=== PATIENT | male | born 1960 | race Caucasian/White ===

== ENCOUNTER 2019-03-21 15:26 | Outpatient (CLI) | payer BC ==
[2019-03-21 19:01] LABS: BASOPHILS % (AUTO) 0.7 %; EOSINOPHILS # (AUTO) 0.2 10^3/uL (0.0-0.7); EOSINOPHILS % (AUTO) 3.7 %; HGB - HEMOGLOBIN 16.1 g/dL (14.0-18.0); LYMPHOCYTES # (AUTO) 0.7 10^3/uL (1.5-3.5); LYMPHOCYTES % (AUTO) 14.3 %; MEAN CORPUSCULAR HEMOGLOBIN 31.1 pg (27.0-31.0); MEAN CORPUSCULAR VOLUME 91.4 fL (80.0-94.0); MEAN PLATELET VOLUME 8.2 fL (7.4-11.4); MONOCYTES # (AUTO) 0.5 10^3/uL (0.0-1.0); MONOCYTES % (AUTO) 9.1 %; NEUTROPHILS # (AUTO) 3.7 10^3/uL (1.5-6.6); NEUTROPHILS % (AUTO) 72.2 %; PLT - PLATELET COUNT 158 10^3/uL (130-450); RED BLOOD COUNT 5.19 10^6/uL (4.70-6.10); RED CELL DISTRIBUTION WIDTH 13.1 % (12.0-15.0); WHITE BLOOD COUNT 5.2 x10^3/uL (4.8-10.8)
[2019-03-21 19:17] LABS: ALBUMIN 4.1 g/dL (3.2-5.5); ALBUMIN/GLOBULIN RATIO 1.4 (1.0-2.2); ALKALINE PHOSPHATASE 59 IU/L (42-121); ALT ALANINE AMINOTRANSFERASE 35 IU/L (10-60); AST ASPARTATE AMINOTRANSFERASE 29 IU/L (10-42); BILIRUBIN,TOTAL 0.9 mg/dL (0.2-1.0); BUN - BLOOD UREA NITROGEN 13 mg/dL (6-20); CALCIUM 9.1 mg/dL (8.5-10.3); CARBON DIOXIDE - CO2 26 mmol/L (21-32); CHLORIDE 102 mmol/L (101-111); CREATININE 1.1 mg/dL (0.6-1.2); GFR - MDRD 68 (>89); GLUCOSE 115 mg/dL (70-100); LIPASE 31 U/L (22-51); SODIUM 138 mmol/L (135-145); TOTAL PROTEIN 7.1 g/dL (6.7-8.2)
[2019-03-21 20:09] LABS: CRP - C-REACTIVE PROTEIN < 1.0 mg/dL (0-1.0)
== END 2019-03-21 15:27 | disposition home or self-care (01) ==
LOC: LAB.WCP 15:26
PROVIDERS: ATTEND Family Medicine
DX: R19.5 Other fecal abnormalities (principal); R51 Headache; Z12.5 Encounter for screening for malignant neoplasm of prostate
CPT/HCPCS: 36415; 80053; 83690; 84153; 85025; 85651; 86140

== ENCOUNTER 2019-03-23 03:45 | Emergency (ER) | payer BC ==
[2019-03-23] MEDS ORDERED: SODIUM CHLORIDE 0.9% 1,000 ML IV ONE (04:12)
[2019-03-23] MEDS ORDERED: ONDANSETRON 4 MG/2 ML VIAL IVP STA (04:12)
[2019-03-23] MEDS ORDERED: MAG HYDROX/AL HYDROX/SIMETH 30 ML UDC PO STA (04:12)
[2019-03-23] MEDS ORDERED: HYDROmorphone 2 MG/ML VIAL IVP STA (04:12)
[2019-03-23] MEDS ORDERED: KETOROLAC 15 MG/ML VIAL IVP STA (04:12)
--- NOTE | 2019-03-23 04:12 | ED Physician Documentation ---
PD HPI HEADACHE - Stated complaint Stated Complaint: NOYOLA - Chief complaint Chief Complaint: Neuro - History obtained from History obtained from: Patient - History of Present Illness Timing - onset: How many days ago (4) Timing - onset during: Light activity Timing - duration: Days (4) Timing - details: Gradual onset, Still present, Waxing and waning Worst headache ever?: No: Worst headache ever? Location: Front, Right Quality: Throbbing, Aching Associated symptoms: Nausea. No: Fever, Stiff neck, Vomiting, Weakness, Numbness, Vision changes Improved by: No: Rest, Meds (Ibuprofen) Worsened by: No: Light, Noise Contributing factors: Recent illness (chills and malaise 4 days ago, improving) Similar symptoms before: Has not had sx before Recently seen: Clinic (seen yesterday by PCP and is being referred for GI/ednoscopies to [facility] for the light stools. Also was to get CT head regarding the headache; patient was to hear from office today about referral. He had worse headache, so came to ER.) Review of Systems Constitutional: reports: Chills, Myalgias. denies: Fever Eyes: denies: Photophobia Nose: reports: Congestion. denies: Rhinorrhea / runny nose Throat: denies: Sore throat Respiratory: denies: Cough GI: reports: Nausea, Diarrhea (loose stool with white/dayanara-like stools over this past weekend (4-5 days ago). No ongoing diarrhea the past few days. Has nausea with vomiting in the mornings for months.). denies: Vomiting Skin: denies: Rash, Lesions Neurologic: reports: Headache. denies: Focal weakness, Numbness, Near syncope, Confused, Altered mental status PD PAST MEDICAL HISTORY - Past Medical History Cardiovascular: Hypertension Respiratory: None Neuro: None GI: GERD, Other - Past Surgical History Past Surgical History: Yes General: Other - Present Medications Home Medications: Ambulatory Orders Medication Instructions Recorded Confirmed Famotidine 20 mg PO DAILY #30 tablet 03/23/19 Hydrocodone/Acetaminophen [Drain 1 each PO Q6H PRN #15 tablet 03/23/19 5-325 Tablet] Ondansetron Odt [Zofran] 4 mg TL Q6H PRN #10 tablet 03/23/19 dexAMETHasone [Decadron] 4 mg PO DAILY #5 tablet 03/23/19 - Allergies Allergies/Adverse Reactions: Allergies Allergy/AdvReac Type Severity Reaction Status Date / Time amoxicillin Allergy Rash Verified 01/03/16 06:03 - Social History Does the pt smoke?: No Smoking Status: Never smoker Does the pt drink ETOH?: No - Immunizations Immunizations are current?: Yes PD ED PE NORMAL - General General: Alert and oriented X 3, No acute distress, Well developed/nourished - HEENT HEENT: Atraumatic, PERRL, EOMI, Ears normal, Pharynx benign - Neck Neck: Supple, no meningeal sign, No adenopathy - Cardiac Cardiac: RRR, No murmur - Respiratory Respiratory: Clear bilaterally - Abdomen Abdomen: Soft, Non tender - Back Back: No CVA TTP - Derm Derm: Normal color, Warm and dry - Extremities Extremities: No tenderness to palpate, Normal ROM s pain - Neuro Neuro: Alert and oriented X 3, 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, No motor deficit, No sensory deficit, Normal speech, Other Eye Opening: Spontaneous Motor: Obeys Commands Verbal: Oriented GCS Score: 15 Results - Vitals Vitals: Vital Signs - 24 hr 03/23/19 03/23/19 03/23/19 03:50 04:57 06:00 Temperature 36.5 C 36.5 C Heart Rate 71 78 61 Respiratory 17 Rate Blood Pressure 165/91 H 175/96 H 152/88 H O2 Saturation 99 97 97 Oxygen O2 Source Room air - Labs Labs: Laboratory Tests 03/23/19 03/23/19 05:00 05:00 WBC 4.8 RBC 5.00 Hgb 15.9 Hct 44.5 MCV 88.9 MCH 31.7 H MCHC 35.6 RDW 12.7 Plt Count 141 MPV 7.2 L Neut # (Auto) 3.5 Lymph # (Auto) 0.7 [place] # (Auto) 0.5 Eos # (Auto) 0.1 Baso # (Auto) 0.0 Absolute Nucleated RBC 0.00 Nucleated RBC % 0.1 Sodium 139 Potassium 3.9 Chloride 103 Carbon Dioxide 26 Anion Gap 10.0 BUN 17 Creatinine 0.9 Estimated GFR (MDRD) 86 L Glucose 111 H Calcium 9.0 Total Bilirubin 1.1 H AST 29 ALT 36 Alkaline Phosphatase 66 Total Protein 7.1 Albumin 4.2 Globulin 2.9 Albumin/Globulin Ratio 1.4 Lipase 43 - Rads (name of study) head CT Radiology: Prelim report reviewed (no acute process), See rad report PD MEDICAL DECISION MAKING - ED course Complexity details: reviewed results, re-evaluated patient (feeling much better with meds and fluids. ), considered differential, d/w patient Departure - Departure Disposition: 01 Home, Self Care Clinical Impression: Acute headache Qualifiers: Headache type: unspecified Intractability: not intractable Qualified Code(s): R51 - Headache Condition: Stable Record reviewed to determine appropriate education?: Yes Instructions: ED Cephalgia Unspecified Follow-Up: Kaveh Oswald MD [Primary Care Provider] - Prescriptions: dexAMETHasone [Decadron] 4 mg PO DAILY #5 tablet Famotidine 20 mg PO DAILY #30 tablet Hydrocodone/Acetaminophen [Drain 5-325 Tablet] 1 each PO Q6H PRN #15 tablet PRN Reason: Pain Ondansetron Odt [Zofran] 4 mg TL Q6H PRN #10 tablet PRN Reason: Nausea / Vomiting Comments: Your CT scan does not show any acute abnormality. Your blood count is good with a normal white count and you do not have a fever. This still sounds possibly a viral illness with associated headache. Stay well-hydrated. Decadron daily for 5 more days for inflammation. Use ibuprofen or naproxen once or twice daily as needed. Add ondansetron if needed for nausea. Had Tylenol or hydrocodone as needed for headache. Follow-up with your primary care if not improved in the next couple of days. Discharge Date/Time: 03/23/19 07:03
[2019-03-23 05:15] LABS: BASOPHILS % (AUTO) 0.3 %; EOSINOPHILS # (AUTO) 0.1 10^3/uL (0.0-0.7); EOSINOPHILS % (AUTO) 2.6 %; HGB - HEMOGLOBIN 15.9 g/dL (14.0-18.0); LYMPHOCYTES # (AUTO) 0.7 10^3/uL (1.5-3.5); LYMPHOCYTES % (AUTO) 14.3 %; MEAN CORPUSCULAR HEMOGLOBIN 31.7 pg (27.0-31.0); MEAN CORPUSCULAR HGB CONC 35.6 g/dL (32.0-36.0); MEAN CORPUSCULAR VOLUME 88.9 fL (80.0-94.0); MEAN PLATELET VOLUME 7.2 fL (7.4-11.4); MONOCYTES # (AUTO) 0.5 10^3/uL (0.0-1.0); MONOCYTES % (AUTO) 10.6 %; NEUTROPHILS # (AUTO) 3.5 10^3/uL (1.5-6.6); NEUTROPHILS % (AUTO) 72.2 %; PLT - PLATELET COUNT 141 10^3/uL (130-450); RED CELL DISTRIBUTION WIDTH 12.7 % (12.0-15.0); WHITE BLOOD COUNT 4.8 x10^3/uL (4.8-10.8)
--- NOTE | 2019-03-23 05:18 | CT Report ---
Reason: headache 4 days Procedure Date: 03/23/2019 Accession Number: [id number] / [id number] Procedure: CT - HEAD WO CPT Code: FULL RESULT: EXAM: CT HEAD EXAM DATE: 03/23/2019 05:03 AM. CLINICAL HISTORY: Headache 4 days. COMPARISON: None. TECHNIQUE: Multiaxial CT images were obtained from the foramen magnum to the vertex. Reformats: Sagittal and coronal. IV contrast: None. In accordance with CT protocol optimization, one or more of the following dose reduction techniques were utilized for this exam: automated exposure control, adjustment of mA and/or KV based on patient size, or use of iterative reconstructive technique. FINDINGS: Parenchyma: No acute intracranial hemorrhage or large cortical infarct. No intra-axial mass within the confines of a non-contrast exam. No midline shift. Extraaxial Spaces: No abnormal extra-axial collections demonstrated. Ventricles and sulci: Ventricles and sulci are proportional. Sinuses: There is mucosal thickening within the left sphenoid sinus. Ethmoid air cell mucosal thickening as well. No evident mastoid fluid. Orbits: Without significant abnormality. Bones: No evidence of fracture or calvarial defect. Other: Prior right-sided maxillofacial ORIF. IMPRESSION: No CT evidence of an acute intracranial abnormality. If there is clinical suspicion of an acute infarct, consider MRI since it is more sensitive than CT. RADIA
[2019-03-23 05:28] LABS: ALBUMIN 4.2 g/dL (3.2-5.5); ALBUMIN/GLOBULIN RATIO 1.4 (1.0-2.2); BILIRUBIN,TOTAL 1.1 mg/dL (0.2-1.0); CREATININE 0.9 mg/dL (0.6-1.2); TOTAL PROTEIN 7.1 g/dL (6.7-8.2)
[2019-03-23] MEDS ORDERED: DEXAMETHASONE 10 MG/ML VIAL IVP STA (05:35)
[2019-03-23 06:02] VITALS: BP 152/88
== END 2019-03-23 07:03 | disposition home or self-care (01) ==
LOC: ED 03:45
DX: R51 Headache (principal); I10 Essential (primary) hypertension
CPT/HCPCS: 36415; 70450; 80053; 83690; 85025; 96361; 96374; 96375; 99283; 99284; A9270; J1170

== ENCOUNTER 2019-03-29 07:11 | Outpatient (CLI) | payer BC ==
--- NOTE | 2019-03-29 08:51 | Ultrasound Report ---
Reason: LOU COLORED STOOLS Procedure Date: 03/29/2019 Accession Number: [id number] / [id number] Procedure: US - Abdomen Complete CPT Code: FULL RESULT: EXAM: ABDOMEN ULTRASOUND EXAM DATE: 03/29/2019 07:40 AM. CLINICAL HISTORY: LOU COLORED STOOLS. COMPARISON: None. TECHNIQUE: Real-time scanning was performed with static images obtained. FINDINGS: Liver: Diffusely echogenic liver parenchyma without suspicious mass. 16 cm. Main portal vein flow: Hepatopetal. Gallbladder: Normal. No stones, wall thickening, or sonographic Cadena's sign. Biliary System: Common bile duct measures 3.8 mm. No intrahepatic or extrahepatic ductal dilatation. Pancreas: Obscured by overlying bowel gas. Kidneys: Right: 10.8 cm longitudinally. Normal. No contour-deforming mass, stones, or hydronephrosis. Left: 11.4 cm longitudinally. Normal. No contour-deforming mass, stones, or hydronephrosis. Spleen: 10.9 cm. Normal in size and echotexture. Aorta and Inferior Vena Cava: Unremarkable. Other: None. IMPRESSION: 1. Diffusely echogenic liver parenchyma which is a nonspecific finding and most often associated with steatosis. No focal mass or significant hepatosplenomegaly. 2. The pancreas cannot be evaluated because of overlying bowel gas. 3. Otherwise negative examination. RADIA
== END 2019-03-29 07:12 | disposition home or self-care (01) ==
LOC: DI 07:11
PROVIDERS: ATTEND Family Medicine
DX: R19.5 Other fecal abnormalities (principal)
CPT/HCPCS: 76700

== ENCOUNTER 2019-04-07 07:19 | Outpatient (CLI) | payer BC ==
[2019-04-07] MEDS ORDERED: GADOBUTROL 7.5 MMOL/7.5 ML VIAL ONE (08:06)
--- NOTE | 2019-04-07 09:44 | MRI Report ---
Reason: HEADACHE Procedure Date: 04/07/2019 Accession Number: [id number] / [id number] Procedure: MRI - Brain W/WO CPT Code: FULL RESULT: EXAM: MRI BRAIN WITHOUT AND WITH CONTRAST EXAM DATE: 04/07/2019 08:49 AM. CLINICAL HISTORY: Flulike symptoms which brought on headaches which since resolved since prior ED visit. COMPARISON: CT head without contrast 03/23/2019. TECHNIQUE: Multiplanar, multisequence T1-weighted and fluid-sensitive MR sequences of the brain were performed. Sequences optimized for routine evaluation. Other: None. IV Contrast: Without and with contrast, 7.5 cc IV Gadavist. FINDINGS: Diffusion weighted sequence shows no evidence for acute infarct. There is no mass, mass effect, midline shift or abnormal extraaxial fluid collection. Size and configuration of the ventricles are normal. Signal in the cortex and white matter appears normal. Brainstem and cerebellum appear normal. Major intracranial flow voids appear normal. Limited evaluation of the arteries and dural venous sinus structures on postcontrast imaging appears normal. Small arachnoid granulations are seen in the lateral left transverse sinus. There is no abnormal parenchymal, pachymeningeal, or leptomeningeal enhancement. Globes, orbits, optic nerve sheath complex, optic chiasm, pituitary, cavernous sinus and Meckel's cave appear normal. Scattered mucosal thickening in the anterior ethmoid air cells, and maxillary sinus antra bilaterally. Mucosal thickening and likely obstruction of the frontal ethmoid recess. Paranasal sinuses and mastoid air cells appear well aerated. Postoperative changes of right orbital zygomatic and maxillofacial reconstructions. Marrow signal and extracranial soft tissue appear normal. Craniocervical junction and visualized upper cervical cord appear unremarkable. IMPRESSION: 1. Unremarkable MRI of the brain without and with contrast. 2. Mucosal thickening in the anterior ethmoid air cells, maxillary sinus and frontoethmoidal recess could be correlated with recent sinusitis. RADIA
[2019-04-08] MEDS ORDERED: GADOBUTROL 7.5 MMOL/7.5 ML VIAL IVP ONE (09:59)
== END 2019-04-07 07:20 | disposition home or self-care (01) ==
LOC: DI 07:19
PROVIDERS: ATTEND Family Medicine
DX: R51 Headache (principal)
CPT/HCPCS: 70553; A9585

== ENCOUNTER 2019-04-26 10:09 | Day surgery (SDC) | payer BC ==
[2019-04-26] MEDS ORDERED: MIDAZOLAM 2 MG/2 ML VIAL IVP ONE (10:30)
[2019-04-26] MEDS ORDERED: fentaNYL 250 MCG/5 ML VIAL IVP ONE (10:30)
[2019-04-26] MEDS ORDERED: LACTATED RINGERS 1,000 ML IV ONE (10:43)
[2019-04-26] MEDS ORDERED: LIDO GARGLE 30 ML BOTTLE ONE (11:41)
[2019-04-26] MEDS ORDERED: LIDO GARGLE 30 ML BOTTLE TOP ONE (11:48)
[2019-04-26 14:28] VITALS: BP 140/90
== END 2019-04-26 10:10 | disposition home or self-care (01) ==
LOC: SDS 10:09
PROVIDERS: ATTEND Internal Medicine Gastroenterology
PROC: 0DBK8ZZ Excision of Ascending Colon, Via Natural or Artificial Opening Endoscopic (ICD-10-PCS; 2019-04-26)
PROC: 0DBN8ZZ Excision of Sigmoid Colon, Via Natural or Artificial Opening Endoscopic (ICD-10-PCS; 2019-04-26)
PROC: 0DBP8ZZ Excision of Rectum, Via Natural or Artificial Opening Endoscopic (ICD-10-PCS; 2019-04-26)
PROC: 0DB38ZX Excision of Lower Esophagus, Via Natural or Artificial Opening Endoscopic, Diagnostic (ICD-10-PCS; principal; 2019-04-26 11:30)
PROC: 0DB78ZZ Excision of Stomach, Pylorus, Via Natural or Artificial Opening Endoscopic (ICD-10-PCS; 2019-04-26 11:30)
DX: Z12.11 Encounter for screening for malignant neoplasm of colon (principal); D12.2 Benign neoplasm of ascending colon; K63.5 Polyp of colon; K62.1 Rectal polyp; K57.30 Diverticulosis of large intestine without perforation or abscess without bleeding; K22.70 Barrett's esophagus without dysplasia; K31.7 Polyp of stomach and duodenum; Z87.19 Personal history of other diseases of the digestive system
CPT/HCPCS: 43239; 45380; A9270; J3010; J7120

== ENCOUNTER 2021-06-06 17:21 | Outpatient (CLI) | payer BC ==
--- NOTE | 2021-06-07 09:27 | XRAY Report ---
PROCEDURE: Cervical Spine 2 View INDICATIONS: NECK PX TECHNIQUE: 5 view(s) of the cervical spine were acquired. COMPARISON: None. FINDINGS: Bones: No fractures or dislocations to the C7-T1 level. There is straightening of normal cervical l ordosis. Minimal anterolisthesis of C4 on C5 is seen. Partial bony union at C3-4 level is also noted. Degenerative endplate changes and decreased disc height are seen at C4-5 through C6-7 levels. The la teral masses of C1 appear intact on the odontoid view. No suspicious bony lesions. Soft tissues: No prevertebral soft tissue swelling. IMPRESSION: Degenerative disc disease throughout mid to lower cervical spine. No acute fracture or d islocation. Minimal anterolisthesis of C4 on C5. Reviewed by: Mario Marti MD on 06/07/2021 9:25 AM PDT Approved by: Mario Marti MD on 06/07/2021 9:25 AM PDT Station ID: [id number]
== END 2021-06-06 17:22 | disposition home or self-care (01) ==
LOC: DI.N 17:21
PROVIDERS: ATTEND Nurse Practitioner
DX: M50.321 Other cervical disc degeneration at C4-C5 level (principal)

== ENCOUNTER 2021-08-28 11:14 | Outpatient (CLI) | payer OTHER, BC ==
--- NOTE | 2021-08-28 16:53 | XRAY Report ---
PROCEDURE: Wrist 3 View LT INDICATIONS: UNSPECIFIED MULTIPLE INJURIES,LT WRST,RT HAND TECHNIQUE: 3 views of the wrist were acquired. COMPARISON: none FINDINGS: Bones: No fractures or dislocations. No suspicious bony lesions. Scaphoid view: No visualized fracture. Soft tissues: No suspicious soft tissue calcifications. IMPRESSION: No visualized acute fracture or dislocation. However, occult injury cannot be excluded. Recommend smith rt interval imaging follow-up in 7-10 days as clinically indicated for additional evaluation. Reviewed by: Vanesa Up MD on 08/28/2021 4:51 PM PST Approved by: Vanesa Up MD on 08/28/2021 4:51 PM PST Station ID: [id number]
--- NOTE | 2021-08-28 16:53 | XRAY Report ---
PROCEDURE: Hand 3 View RT INDICATIONS: UNSPECIFIED MULTIPLE INJURIES,LT WRST,RT HAND TECHNIQUE: 3 views of the hand(s) acquired. COMPARISON: xray wrist 08/28/21 FINDINGS: Bones: No fractures or dislocations. No suspicious bony lesions. Soft tissues: No suspicious soft tissue calcifications. IMPRESSION: No visualized acute fracture or dislocation. However, occult injury cannot be excluded. Recommend smith rt interval imaging follow-up in 7-10 days as clinically indicated for additional evaluation. Reviewed by: Vanesa Up MD on 08/28/2021 4:52 PM PST Approved by: Vanesa Up MD on 08/28/2021 4:52 PM PST Station ID: [id number]
== END 2021-08-28 11:15 | disposition home or self-care (01) ==
LOC: DI 11:14
PROVIDERS: ATTEND Physician Assistant
DX: M79.645 Pain in left finger(s) (principal); M79.644 Pain in right finger(s); T07.XXXA Unspecified multiple injuries, initial encounter

== ENCOUNTER 2022-10-22 08:19 | Outpatient (CLI) | payer BC ==
[2022-10-22 08:33] LABS: BASOPHILS % (AUTO) 0.5 %; EOSINOPHILS # (AUTO) 0.3 10^3/uL (0.0-0.7); EOSINOPHILS % (AUTO) 7.1 %; HCT - HEMATOCRIT 48.9 % (42.0-52.0); HGB - HEMOGLOBIN 16.5 g/dL (14.0-18.0); LYMPHOCYTES # (AUTO) 1.1 10^3/uL (1.5-3.5); LYMPHOCYTES % (AUTO) 25.5 %; MEAN CORPUSCULAR HEMOGLOBIN 30.4 pg (27.0-31.0); MEAN CORPUSCULAR HGB CONC 33.7 g/dL (32.0-36.0); MEAN CORPUSCULAR VOLUME 90.2 fL (80.0-94.0); MEAN PLATELET VOLUME 9.4 fL (7.4-11.4); MONOCYTES # (AUTO) 0.4 10^3/uL (0.0-1.0); MONOCYTES % (AUTO) 10.1 %; NEUTROPHILS # (AUTO) 2.5 10^3/uL (1.5-6.6); NEUTROPHILS % (AUTO) 56.6 %; PLT - PLATELET COUNT 200 10^3/uL (130-450); RED BLOOD COUNT 5.42 10^6/uL (4.70-6.10); RED CELL DISTRIBUTION WIDTH 12.5 % (12.0-15.0); WHITE BLOOD COUNT 4.4 x10^3/uL (4.8-10.8)
[2022-10-22 08:56] LABS: ALBUMIN 4.4 g/dL (3.2-5.5); ALBUMIN/GLOBULIN RATIO 1.3 (1.0-2.2); ALKALINE PHOSPHATASE 65 IU/L (42-121); ALT ALANINE AMINOTRANSFERASE 24 IU/L (10-60); AST ASPARTATE AMINOTRANSFERASE 24 IU/L (10-42); BILIRUBIN,TOTAL 1.2 mg/dL (0.2-1.0); BUN - BLOOD UREA NITROGEN 12 mg/dL (6-20); CALCIUM 9.3 mg/dL (8.5-10.3); CARBON DIOXIDE - CO2 30 mmol/L (21-32); CHLORIDE 100 mmol/L (101-111); CHOLESTEROL 215 mg/dL; CREATININE 1.2 mg/dL (0.6-1.2); GFR - MDRD 61 (>89); GLUCOSE 105 mg/dL (70-100); HDL CHOLESTEROL 54 mg/dL; LDL CHOLESTEROL,CALCULATED 139 mg/dL; LDL/HDL RATIO 2.6 (<3.6); POTASSIUM 4.7 mmol/L (3.5-5.0); SODIUM 139 mmol/L (135-145); TOTAL PROTEIN 7.7 g/dL (6.7-8.2); TRIGLYCERIDES 108 mg/dL; VLDL CHOLESTEROL 22 mg/dL
[2022-10-22 09:06] LABS: THYROID STIMULATING HORMONE 1.66 uIU/mL (0.34-5.60)
== END 2022-10-22 08:20 | disposition home or self-care (01) ==
LOC: LAB 08:19
PROVIDERS: ATTEND Family Medicine
DX: K21.9 Gastro-esophageal reflux disease without esophagitis (principal); Z12.5 Encounter for screening for malignant neoplasm of prostate; Z86.010 Personal history of colon polyps; Z87.19 Personal history of other diseases of the digestive system
CPT/HCPCS: 36415; 80053; 80061; 83721; 84153; 84443; 85025

== ENCOUNTER 2023-03-17 05:22 | Emergency (ER) | payer BC ==
--- NOTE | 2023-03-17 05:50 | ED Physician Documentation ---
PD HPI BACK PAIN - Stated complaint Stated Complaint: LOWER BACK PX - Chief complaint Chief Complaint: Back Pain - History obtained from History obtained from: Patient - Additional information Additional information: HPI from patient. Patient complains of sudden onset of left flank pain, awakening him from sleep at approximately 5:45 this morning. Pain is associated with nausea but no vomiting. The patient says he had similar but milder and self-limited pain 2 nights ago; did not recur until this morning. The only previous such episode he had was approximately 20 years ago when he had a kidney stone. There are no exacerbating or ameliorating factors. Denies urinary frequency, dysuria, hematuria. Review of Systems Constitutional: denies: Fever Cardiac: reports: Reviewed and negative Respiratory: reports: Reviewed and negative GI: reports: Nausea. denies: Abdominal Pain, Vomiting, Constipation, Diarrhea : denies: Dysuria, Frequency, Hematuria PD PAST MEDICAL HISTORY - Past Medical History Cardiovascular: Hypertension Respiratory: None Neuro: None Endocrine/Autoimmune: None GI: GERD : Kidney stones HEENT: None Psych: None Musculoskeletal: None Derm: None - Past Surgical History Past Surgical History: Yes General: Other HEENT: Tonsil/Adenoidectomy Other past surgical history: floyd fundoplication - Present Medications Home Medications: Ambulatory Orders Medication Instructions Recorded Confirmed Ondansetron Odt [Zofran Odt] 4 mg TL Q6H PRN #14 tablet 03/17/23 Tamsulosin [Flomax] 0.4 mg PO DAILY #14 cap 03/17/23 oxyCODONE [Roxicodone] 5 - 10 mg PO Q6H PRN #20 tablet 03/17/23 Oxycodone HCl/Acetaminophen 1 each PO Q4HR PRN #20 tablet 03/18/23 [Percocet 10-325 mg Tablet] Promethazine [Phenergan] 25 mg PO Q6H PRN #10 tablet 03/18/23 - Allergies Allergies/Adverse Reactions: Allergies Allergy/AdvReac Type Severity Reaction Status Date / Time amoxicillin Allergy Rash Verified 03/18/23 07:24 - Social History Does the pt smoke?: No Smoking Status: Never smoker Does the pt drink ETOH?: No Does the pt have substance abuse?: No - Immunizations Immunizations are current?: Yes PD ED PE NORMAL - Vitals Vital signs reviewed: Yes - General General: Alert and oriented X 3, Well developed/nourished, Other (obvious severe painful distress) - Cardiac Cardiac: RRR, No murmur - Respiratory Respiratory: No respiratory distress, Clear bilaterally - Abdomen Abdomen: Soft, Non tender, Non distended - Back Back: No CVA TTP - Derm Derm: Normal color, Warm and dry, No rash Results - Vitals Vitals: Oxygen O2 Source Room air - Labs Labs: Laboratory Tests 03/17/23 03/17/23 03/17/23 05:44 05:44 06:40 WBC 6.3 RBC 4.94 Hgb 15.3 Hct 44.1 MCV 89.3 MCH 31.0 MCHC 34.7 RDW 12.1 Plt Count 207 MPV 9.6 Neut # (Auto) 2.7 Lymph # (Auto) 2.5 [place] # (Auto) 0.6 Eos # (Auto) 0.5 Baso # (Auto) 0.0 Absolute Nucleated RBC 0.00 Nucleated RBC % 0.0 Sodium 138 Potassium 3.4 L Chloride 104 Carbon Dioxide 26 Anion Gap 8.0 BUN 16 Creatinine 1.3 H Estimated GFR (MDRD) 56 L Glucose 146 H Calcium 9.1 Total Bilirubin 0.9 AST 28 ALT 32 Alkaline Phosphatase 54 Total Protein 7.1 Albumin 4.2 Globulin 2.9 Albumin/Globulin Ratio 1.4 Lipase 33 Urine Color DARK YELLOW Urine Clarity CLEAR Urine pH 5.0 Ur Specific [place] >=1.030 H Urine Protein 30 H Urine Glucose (UA) NEGATIVE Urine Ketones NEGATIVE Urine Occult Blood LARGE H Urine Nitrite NEGATIVE Urine Bilirubin NEGATIVE Urine Urobilinogen 0.2 (NORMAL) Ur Leukocyte Esterase NEGATIVE Urine RBC TNTC H Urine WBC 0-3 Ur Squamous Epith Cells NONE SEEN Urine Bacteria Rare Urine Mucus Few Strands Ur Microscopic Review INDICATED Urine Culture Comments NOT INDICATED - Rads (name of study) CT A/P Relevant Findings:: Prelim report reviewed, See rad report PD Medical Decision Making - ED course Complexity details: reviewed results, re-evaluated patient, considered differential, d/w patient ED course: Tests ordered and results reviewed by me: CBC, ear abdominal panel, urinalysis, CT abdomen/pelvis. There were no concerning or diagnostic findings on the blood tests; minimal hypokalemia with potassium of 3.4 is noted. Mildly abnormal creatinine (1.3). Urinalysis has large blood, TNTC RBC on microscopy; there are no findings on the urinalysis to suggest a concomitant infection (no white blood cells, no nitrates). CT abdomen and pelvis demonstrates a left UPJ stone with moderate left hydronephrosis, benign appearing right hepatic cyst. Patient is given Toradol, Zofran, and Dilaudid intravenously. On multiple sub sequent reevaluations and throughout the remainder of his emergency department stay, he is awake, alert, and in no apparent distress, reports excellent relief of his symptoms with these medications; he did not require any repeat dosing of medication for symptoms. Prior to discharge, he is also given 0.4 mg of tamsulosin orally. Test results are discussed with the patient, return precautions are also discussed. He is provided a take-home pack of Percocet, and he is being prescribed Percocet, Flomax, and ondansetron. I am prescribing a short course of narcotic pain medication for you. These are potentially dangerous and addictive medications that should be used carefully. These medications may constipate you. Take an znwe-yof-isewyvm stool softener (docusate) twice daily with plenty of water while taking these medications. If you go 24 hours without a bowel movement, take kago-awz-zvsaqdy miralax, per package instructions. Do not drink or drive while taking these medications. If you received narcotic or sedating medications while in the emergency department, do not drive for 24 hours. Store this medication in a safe, secure place and out of reach of children. It is a violation of federal law to give or sell this medication to another person or to use in a manner other than prescribed. The ED will not refill narcotic prescriptions, including prescriptions lost or stolen. To dispose of unwanted medications: 1. [facility] at [address] in [place] has a medication drop box. They accept prescription medications (in pill form) Thursday through Thursday 9:00 a.m. to 5:00 p.m. 2. [facility] accepts prescription medications (in pill form only) for disposal year round. Call for more information. 3. Contact the [facility] for the next [facility] sponsored prescription drug collection event. , [phone], or [phone]; Departure - Departure Disposition: 01 Home, Self Care Clinical Impression: Renal colic Condition: Good Instructions: ED Stone Renal W Colic Prescriptions: Tamsulosin [Flomax] 0.4 mg PO DAILY #14 cap oxyCODONE [Roxicodone] 5 - 10 mg PO Q6H PRN #20 tablet PRN Reason: Pain >8 Ondansetron Odt [Zofran Odt] 4 mg TL Q6H PRN #14 tablet PRN Reason: Nausea / Vomiting Comments: The CT scan of your abdomen and pelvis demonstrate a left sided kidney stone measuring up to 6 mm. This finding certainly accounts for your symptoms. As we discussed, follow-up with your primary care provider later today as scheduled. They can advise you as to recommended follow-up, such as referring you to a urologist if they feel that is appropriate. You have been provided with a strainer; strain your urine through the strainer so that you will know if you have passed the kidney stone. Furthermore, if you do pass the stone, ask your doctor if they would recommend sending it to a lab for analysis. Prescriptions for oxycodone (opiate/narcotic pain medication), ondansetron (antinausea medication), and tamsulosin (medication that can increase the likelihood of passing the kidney stone as well as decrease time until passing the stone) have all been electronically submitted to the [facility] pharmacy in [place]. Note that if you do pass the stone (as evidenced by capturing the stone in the strainer), you should take the next dose of tamsulosin that you are due to take but can then discontinue the tamsulosin. I am prescribing a short course of narcotic pain medication for you. These are potentially dangerous and addictive medications that should be used carefully. These medications may constipate you. Take an kmla-cbw-rcmjvil stool softener (docusate) twice daily with plenty of water while taking these medications. If you go 24 hours without a bowel movement, take couu-tno-itkcsgq miralax, per package instructions. Do not drink or drive while taking these medications. If you received narcotic or sedating medications while in the emergency department, do not drive for 24 hours. Store this medication in a safe, secure place and out of reach of children. It is a violation of federal law to give or sell this medication to another person or to use in a manner other than prescribed. The ED will not refill narcotic prescriptions, including prescriptions lost or stolen. To dispose of unwanted medications: 1. [facility] [address] in [place] has a medication drop box. They accept prescription medications (in pill form) Thursday through Thursday 9:00 a.m. to 5:00 p.m. 2. [facility] accepts prescription medications (in pill form only) for disposal year round. Call for more information. 3. Contact the [facility] for the next [facility] sponsored prescription drug collection event. , [phone], or [phone]; Discharge Date/Time: 03/17/23 08:03
[2023-03-17] MEDS ORDERED: HYDROmorphone 1 MG/ML CARPUJECT IVP STA (05:51)
[2023-03-17] MEDS ORDERED: KETOROLAC 30 MG/ML VIAL IVP STA (05:51)
[2023-03-17] MEDS ORDERED: ONDANSETRON 4 MG/2 ML VIAL IVP STA (05:51)
[2023-03-17 05:53] LABS: BASOPHILS % (AUTO) 0.6 %; EOSINOPHILS # (AUTO) 0.5 10^3/uL (0.0-0.7); EOSINOPHILS % (AUTO) 7.6 %; HCT - HEMATOCRIT 44.1 % (42.0-52.0); HGB - HEMOGLOBIN 15.3 g/dL (14.0-18.0); LYMPHOCYTES # (AUTO) 2.5 10^3/uL (1.5-3.5); LYMPHOCYTES % (AUTO) 39.8 %; MEAN CORPUSCULAR HGB CONC 34.7 g/dL (32.0-36.0); MEAN CORPUSCULAR VOLUME 89.3 fL (80.0-94.0); MEAN PLATELET VOLUME 9.6 fL (7.4-11.4); MONOCYTES # (AUTO) 0.6 10^3/uL (0.0-1.0); MONOCYTES % (AUTO) 8.7 %; NEUTROPHILS # (AUTO) 2.7 10^3/uL (1.5-6.6); NEUTROPHILS % (AUTO) 43.1 %; PLT - PLATELET COUNT 207 10^3/uL (130-450); RED BLOOD COUNT 4.94 10^6/uL (4.70-6.10); RED CELL DISTRIBUTION WIDTH 12.1 % (12.0-15.0); WHITE BLOOD COUNT 6.3 x10^3/uL (4.8-10.8)
[2023-03-17 06:06] LABS: ALBUMIN 4.2 g/dL (3.2-5.5); ALBUMIN/GLOBULIN RATIO 1.4 (1.0-2.2); BILIRUBIN,TOTAL 0.9 mg/dL (0.2-1.0); CALCIUM 9.1 mg/dL (8.5-10.3); CREATININE 1.3 mg/dL (0.6-1.2); POTASSIUM 3.4 mmol/L (3.5-5.0); TOTAL PROTEIN 7.1 g/dL (6.7-8.2)
[2023-03-17 06:52] LABS: BILIRUBIN,URINE NEGATIVE (NEGATIVE); GLUCOSE, URINE (UA) NEGATIVE (NEGATIVE); KETONES,URINE (UA) NEGATIVE (NEGATIVE); LEUKOCYTE ESTERASE, URINE NEGATIVE (NEGATIVE); NITRITE,URINE NEGATIVE (NEGATIVE); OCCULT BLOOD,URINE LARGE (NEGATIVE); PROTEIN,URINE 30 mg/dL (NEGATIVE); UROBILINOGEN,URINE 0.2 (NORMAL) E.U./dL (NORMAL)
[2023-03-17 06:54] LABS: CLARITY,URINE CLEAR (CLEAR)
[2023-03-17 06:58] LABS: BACTERIA,URINE Rare /HPF (None Seen); MUCUS,URINE Few Strands; RBC,URINE TNTC /HPF (0-5); SQUAMOUS EPITHELIAL CELL,UR NONE SEEN (<= Few); WBC,URINE 0-3 /HPF (0-3)
[2023-03-17] MEDS ORDERED: oxyCODONE/ACET 5/325 Prepack 4 PO STA (07:20)
[2023-03-17] MEDS ORDERED: TAMSULOSIN 0.4 MG CAPSULE PO STA (07:44)
[2023-03-17 07:57] VITALS: BP 129/68
--- NOTE | 2023-03-17 09:05 | CT Report ---
PROCEDURE: ABDOMEN/PELVIS WO INDICATIONS: left flank pain TECHNIQUE: Noncontrast 5 mm thick sections acquired from the diaphragms to the symphysis. 5 mm coronal and sagi ttal reformats were then performed. For radiation dose reduction, the following was used: automated exposure control, adjustment of mA and/or kV according to patient size. COMPARISON: None. FINDINGS: Image quality: Excellent. Lung bases and heart: Unremarkable. Small hiatal hernia. Surgical clips are noted at the GE junction . Liver: No solid mass. There is a 1.7 cm cyst in the hepatic dome medially. Liver is normal in size. Gallbladder and biliary tree: The bladder is grossly normal. No gallstones. No biliary dilation. Spleen: No splenomegaly. Pancreas: No pancreatic ductal dilation. Adrenals: No adrenal nodule. Kidneys and ureters: A 6 mm stone is present in the proximal left ureter at the UPJ with CT density 7 09 Hounsfield units. Mild left hydronephrosis. In addition, there is a 2 mm nonobstructive stone in l eft kidney. Left kidney. No hydronephrosis. No renal cystic lesion which requires follow up. No solid mass. Bowel and peritoneum: No bowel distension. No pathologic free fluid. Lymph nodes: No central or retroperitoneal adenopathy. Vessels: No infrarenal aortic aneurysm. PELVIS Reproductive organs: Unremarkable. Bladder: No abnormal wall thickening, accounting for underdistension. Pelvic lymph nodes: No pelvic adenopathy by size criteria. Bones: No aggressive osseous abnormality. Other: No significant ventral or inguinal hernia. IMPRESSION: 1. A 6 mm obstructive stone at the left UPJ causing mild hydronephrosis. 2. A 2 mm nodule nonobstructive stone in left kidney. 3. Small hiatal hernia. 4. A benign-appearing hepatic cysts. No significant discrepancy with the preliminary interpretation. Reviewed by: Hattie Escobar MD on 03/17/2023 9:03 AM PDT Approved by: Hattie Escobar MD on 03/17/2023 9:03 AM PDT Station ID: [id number]
== END 2023-03-17 08:03 | disposition home or self-care (01) ==
LOC: ED 05:22
DX: N13.2 Hydronephrosis with renal and ureteral calculous obstruction (principal); I10 Essential (primary) hypertension
CPT/HCPCS: 36415; 74176; 80053; 81001; 83690; 85025; 96374; 99284; A9270; J1170; 81003; 87086

== ENCOUNTER 2023-03-18 07:08 | Emergency (ER) | payer BC ==
[2023-03-18 07:27] VITALS: BP 141/63
[2023-03-18] MEDS ORDERED: ONDANSETRON 4 MG/2 ML VIAL IVP STA (07:36)
[2023-03-18] MEDS ORDERED: SODIUM CHLORIDE 0.9% 1,000 ML IV STA (07:36)
[2023-03-18] MEDS ORDERED: HYDROmorphone 1 MG/ML CARPUJECT IVP STA (07:36)
[2023-03-18] MEDS ORDERED: KETOROLAC 30 MG/ML VIAL IVP STA (07:36)
--- NOTE | 2023-03-18 07:44 | ED Physician Documentation ---
PD HPI ABD PAIN - Stated complaint Stated Complaint: LOW ABD PX, VOMITING - Chief complaint Chief Complaint: Abd Pain - History obtained from History obtained from: Patient - Additional information Additional information: Patient is a 62-year-old male presenting for evaluation of left flank pain with nausea and vomiting. He was seen approximately 24 hours ago in our emergency department and found to have A 6 mm left UPJ stone. Patient was discharged with prescriptions for Percocet and Zofran. He has been taking the medication every 5 hours as prescribed with some improvement in his symptoms. He initially was taking 2 pills of Percocet together which was helping but in the last several hours has been taking one 5 mg pill every 3 hours. He has also been using the Zofran with some improvement but has been feeling the need to dry heave. The pain is still in the left flank.He denies fever. He has not had much p.o. intake.He did see his PCP yesterday who is to refer him to a urologist but he is unsure of the name. Review of Systems Constitutional: denies: Fever Cardiac: denies: Chest pain / pressure Respiratory: denies: Dyspnea GI: reports: Nausea. denies: Abdominal Pain : denies: Dysuria PD PAST MEDICAL HISTORY - Past Medical History Past Medical History: Yes Cardiovascular: Hypertension Respiratory: None Neuro: None Endocrine/Autoimmune: None GI: GERD : Kidney stones HEENT: None Psych: None Musculoskeletal: None Derm: None - Past Surgical History Past Surgical History: Yes General: Other HEENT: Tonsil/Adenoidectomy - Present Medications Home Medications: Ambulatory Orders Medication Instructions Recorded Confirmed Ondansetron Odt [Zofran Odt] 4 mg TL Q6H PRN #14 tablet 03/17/23 Tamsulosin [Flomax] 0.4 mg PO DAILY #14 cap 03/17/23 oxyCODONE [Roxicodone] 5 - 10 mg PO Q6H PRN #20 tablet 03/17/23 Oxycodone HCl/Acetaminophen 1 each PO Q6HR PRN #20 tablet 03/18/23 [Percocet 10-325 mg Tablet] Promethazine [Phenergan] 25 mg PO Q6H PRN #10 tablet 03/18/23 - Allergies Allergies/Adverse Reactions: Allergies Allergy/AdvReac Type Severity Reaction Status Date / Time amoxicillin Allergy Rash Verified 03/18/23 07:24 - Social History Does the pt smoke?: No Smoking Status: Never smoker Does the pt drink ETOH?: No Does the pt have substance abuse?: No - Immunizations Immunizations are current?: Yes PD ED PE NORMAL - General General: Alert and oriented X 3, No acute distress, Well developed/nourished - HEENT HEENT: Atraumatic - Neck Neck: Supple, no meningeal sign - Cardiac Cardiac: RRR, No murmur - Respiratory Respiratory: No respiratory distress, Clear bilaterally - Abdomen Abdomen: Soft, Non tender, Non distended - Back Back: No CVA TTP - Derm Derm: Warm and dry - Neuro Neuro: Normal speech Results - Vitals Vitals: Vital Signs - 24 hr 03/18/23 07:21 Temperature 36.7 C Heart Rate 70 Respiratory 20 Rate Blood Pressure 141/63 H O2 Saturation 97 Oxygen O2 Source Room air PD Medical Decision Making - ED course Complexity details: reviewed results, re-evaluated patient, d/w patient ED course: Pt with known left ureter stone presenting with uncontrolled pain and n/v. VSS. Pt given IV fluids, IV dilaudid, toradol, and zofran with improvement in his symptoms. XR Abd obtained and reviewed without significant change in location of stone. Pt does not appear septic and pain is well controlled. Will increase dose of oxycodone and also Rx promethazine if needed for nausea. Pt aware of need for follow up with urology as well as concerning symptoms to return for. Departure - Departure Disposition: 01 Home, Self Care Clinical Impression: Left ureteral stone Condition: Stable Instructions: ED Stone Renal W Colic Follow-Up: Dougie Castillo MD [Primary Care Provider] - Prescriptions: Oxycodone HCl/Acetaminophen [Percocet 10-325 mg Tablet] 1 each PO Q6HR PRN #20 tablet PRN Reason: Pain 5-7 Promethazine [Phenergan] 25 mg PO Q6H PRN #10 tablet PRN Reason: Nausea / Vomiting Comments: Please call Dr. James's office today to follow-up on your urology referral. We are going to adjust your pain and nausea medication regiment. I have sent a prescription for a stronger dose of oxycodone to the [facility] pharmacy. You can take this every 4-6 hours as needed for pain.I have also sent an additional antinausea medication called Phenergan to the same pharmacy To use if the ondansetron that you were previously prescribed is not helping. If you are able to tolerate NSAIDs, you can also use ibuprofen 600 mg every 8 hours as needed for pain which may also help. Please continue to stay hydrated. Your x- ray today shows that your stone has not made much progress in terms of movement. If you develop any worsening symptoms please return to the ER. Discharge Date/Time: 03/18/23 09:25
--- NOTE | 2023-03-18 08:55 | XRAY Report ---
PROCEDURE: Abdomen 1 View X-Ray INDICATIONS: UPJ stone TECHNIQUE: One view of the abdomen acquired. COMPARISON: CT renal stone study dated 03/17/2023. FINDINGS: Surgical changes and devices: None. Bowel: Bowel gas pattern is normal. Soft tissues: A left abdominal calcification at the level of L2-L3 likely represents unchanged positi on of the patient's left UPJ stone. Visualized solid organ contours appear normal in size. Bones: No suspicious bony lesions. IMPRESSION: Left UPJ stone does not appear to have changed location. Reviewed by: Sunil Viera MD on 03/18/2023 8:54 AM PDT Approved by: Sunil Viera MD on 03/18/2023 8:54 AM PDT Station ID: [id number]
[2023-03-18] MEDS ORDERED: oxyCODONE 5 MG TABLET PO STA (09:09)
== END 2023-03-18 09:25 | disposition home or self-care (01) ==
LOC: ED 07:08
DX: N20.1 Calculus of ureter (principal); I10 Essential (primary) hypertension
CPT/HCPCS: 74018; 96374; 96375; 99283; 99284; A9270; J1170

== ENCOUNTER 2023-06-26 07:23 | Outpatient (CLI) | payer BC ==
[2023-06-26 07:56] LABS: ALBUMIN 4.4 g/dL (3.2-5.5); ALBUMIN/GLOBULIN RATIO 1.7 (1.0-2.2); ALKALINE PHOSPHATASE 69 IU/L (42-121); ALT ALANINE AMINOTRANSFERASE 18 IU/L (10-60); AST ASPARTATE AMINOTRANSFERASE 17 IU/L (10-42); BILIRUBIN,TOTAL 0.7 mg/dL (0.2-1.0); BUN - BLOOD UREA NITROGEN 18 mg/dL (6-20); CALCIUM 9.7 mg/dL (8.5-10.3); CARBON DIOXIDE - CO2 30 mmol/L (21-32); CHLORIDE 103 mmol/L (101-111); CHOL/HDL RATIO 4.3 (<5.0); CHOLESTEROL 187 mg/dL; CREATININE 1.8 mg/dL (0.6-1.3); GFR - MDRD 38 (>89); GLUCOSE 102 mg/dL (74-104); HDL CHOLESTEROL 43 mg/dL; LDL CHOLESTEROL,CALCULATED 110 mg/dL; LDL/HDL RATIO 2.6 (<3.6); POTASSIUM 4.2 mmol/L (3.5-4.5); SODIUM 138 mmol/L (135-145); TRIGLYCERIDES 170 mg/dL (48-352); VLDL CHOLESTEROL 34 mg/dL
[2023-06-26 08:12] LABS: THYROID STIMULATING HORMONE 2.66 uIU/mL (0.34-5.60)
[2023-06-26 08:17] LABS: BASOPHILS % (AUTO) 0.8 %; EOSINOPHILS # (AUTO) 0.4 10^3/uL (0.0-0.7); EOSINOPHILS % (AUTO) 8.3 %; HCT - HEMATOCRIT 42.8 % (42.0-52.0); HGB - HEMOGLOBIN 14.9 g/dL (14.0-18.0); LYMPHOCYTES # (AUTO) 1.2 10^3/uL (1.5-3.5); MEAN CORPUSCULAR HEMOGLOBIN 31.2 pg (27.0-31.0); MEAN CORPUSCULAR HGB CONC 34.8 g/dL (32.0-36.0); MEAN CORPUSCULAR VOLUME 89.7 fL (80.0-94.0); MEAN PLATELET VOLUME 9.9 fL (7.4-11.4); MONOCYTES # (AUTO) 0.5 10^3/uL (0.0-1.0); MONOCYTES % (AUTO) 8.7 %; NEUTROPHILS # (AUTO) 3.1 10^3/uL (1.5-6.6); PLT - PLATELET COUNT 188 10^3/uL (130-450); RED BLOOD COUNT 4.77 10^6/uL (4.70-6.10); RED CELL DISTRIBUTION WIDTH 12.8 % (12.0-15.0); WHITE BLOOD COUNT 5.3 x10^3/uL (4.8-10.8)
[2023-06-26 08:39] LABS: ESTIMATED AVERAGE GLUCOSE 97 mg/dL (70-100)
--- NOTE | 2023-06-26 13:09 | XRAY Report ---
PROCEDURE: Shoulder 2 View RT INDICATIONS: IMPINGEMENT SYNDROME TECHNIQUE: 4 views of the shoulder were acquired. COMPARISON: CXR 01/03/2016. FINDINGS: Bones: No fractures or dislocations. Mild right shoulder degenerative changes. No suspicious bony l esions. Visualized ribs appear intact. Soft tissues: No suspicious soft tissue calcifications. The visualized lungs are within normal limi ts. IMPRESSION: Mild right shoulder DJD. Reviewed by: Altaf Ogden MD on 06/26/2023 1:08 PM PDT Approved by: Altaf Ogden MD on 06/26/2023 1:08 PM PDT Station ID: [id number]
== END 2023-06-26 07:24 | disposition home or self-care (01) ==
LOC: DI 07:23
PROVIDERS: ATTEND Family Medicine
DX: M75.41 Impingement syndrome of right shoulder (principal); M19.011 Primary osteoarthritis, right shoulder; N20.0 Calculus of kidney; I10 Essential (primary) hypertension; Z87.19 Personal history of other diseases of the digestive system; K21.9 Gastro-esophageal reflux disease without esophagitis; Z12.5 Encounter for screening for malignant neoplasm of prostate
CPT/HCPCS: 36415; 80053; 80061; 83036; 83721; 84153; 84443; 85025

== ENCOUNTER 2024-05-10 06:15 | Outpatient (CLI) | payer MEDICARE, BC ==
[2024-05-10 06:46] LABS: BASOPHILS % (AUTO) 0.3 %; EOSINOPHILS # (AUTO) 0.1 10^3/uL (0.0-0.7); EOSINOPHILS % (AUTO) 1.4 %; HCT - HEMATOCRIT 44.2 % (42.0-52.0); HGB - HEMOGLOBIN 14.9 g/dL (14.0-18.0); LYMPHOCYTES # (AUTO) 1.6 10^3/uL (1.5-3.5); LYMPHOCYTES % (AUTO) 15.8 %; MEAN CORPUSCULAR HEMOGLOBIN 30.5 pg (27.0-31.0); MEAN CORPUSCULAR HGB CONC 33.7 g/dL (32.0-36.0); MEAN CORPUSCULAR VOLUME 90.6 fL (80.0-94.0); MEAN PLATELET VOLUME 9.6 fL (7.4-11.4); MONOCYTES # (AUTO) 0.6 10^3/uL (0.0-1.0); NEUTROPHILS # (AUTO) 7.5 10^3/uL (1.5-6.6); NEUTROPHILS % (AUTO) 76.3 %; PLT - PLATELET COUNT 195 10^3/uL (130-450); RED BLOOD COUNT 4.88 10^6/uL (4.70-6.10); RED CELL DISTRIBUTION WIDTH 12.7 % (12.0-15.0); WHITE BLOOD COUNT 9.8 x10^3/uL (4.8-10.8)
[2024-05-10 07:02] LABS: ALBUMIN 4.6 g/dL (3.2-5.5); ALBUMIN/GLOBULIN RATIO 1.6 (1.0-2.2); ALKALINE PHOSPHATASE 56 IU/L (42-121); ALT ALANINE AMINOTRANSFERASE 21 IU/L (10-60); AST ASPARTATE AMINOTRANSFERASE 20 IU/L (10-42); BILIRUBIN,TOTAL 0.6 mg/dL (0.2-1.0); BUN - BLOOD UREA NITROGEN 20 mg/dL (6-20); CALCIUM 9.7 mg/dL (8.5-10.3); CARBON DIOXIDE - CO2 28 mmol/L (21-32); CHLORIDE 105 mmol/L (101-111); CHOL/HDL RATIO 4.5 (<5.0); CHOLESTEROL 204 mg/dL; CREATININE 1.9 mg/dL (0.6-1.3); GFR - MDRD 36 (>89); GLUCOSE 106 mg/dL (74-104); HDL CHOLESTEROL 45 mg/dL; LDL CHOLESTEROL,CALCULATED 111 mg/dL; LDL/HDL RATIO 2.5 (<3.6); SODIUM 139 mmol/L (135-145); TOTAL PROTEIN 7.4 g/dL (6.4-8.9); TRIGLYCERIDES 241 mg/dL; VLDL CHOLESTEROL 48 mg/dL
[2024-05-10 07:17] LABS: THYROID STIMULATING HORMONE 1.39 uIU/mL (0.34-5.60)
[2024-05-10 10:18] LABS: ESTIMATED AVERAGE GLUCOSE 100 mg/dL (70-100); HEMOGLOBIN A1c% 5.1 % (4.27-6.07)
== END 2024-05-10 06:16 | disposition home or self-care (01) ==
LOC: LAB 06:15
PROVIDERS: ATTEND Family Medicine
DX: R73.9 Hyperglycemia, unspecified (principal); Z12.5 Encounter for screening for malignant neoplasm of prostate; Z86.010 Personal history of colon polyps; Z87.19 Personal history of other diseases of the digestive system; K21.9 Gastro-esophageal reflux disease without esophagitis; I10 Essential (primary) hypertension
CPT/HCPCS: 36415; 80053; 80061; 83036; 83721; 84153; 84443; 85025

== ENCOUNTER 2024-05-18 18:00 | Outpatient (CLI) | payer MEDICARE, BC ==
--- NOTE | 2024-05-19 09:04 | Ultrasound Report ---
PROCEDURE: Renal (Retroperitoneal) INDICATIONS: HX OF KIDNEY CALULUS, CHRONIC KIDNEY DISEASE TECHNIQUE: Real-time scanning was performed of the retroperitoneal organs, with image documentation. COMPARISON: CT abdomen and pelvis without contrast 03/17/2023 FINDINGS: Kidneys: Right kidney measures 11.0 cm long; left kidney measures 9.6 cm long. Right renal cortical thickness is 1.1 cm; left renal cortical thickness is 0.7 cm. There is moderate hydronephrosis of th e left renal collecting system with blunting of the calyces and thinning of the renal parenchyma; an obstructing calculus is not identified in the provided images. No solid masses, hydronephrosis, or ne phrolithiasis of the right kidney. Bladder: Pre-void bladder volume is 162.1 mL. Post-void residual is 27.8 mL. Pre-void images demon strate no intraluminal masses or stones. On pre-void images, the right ureteral jet is noted with co kaden Doppler interrogation. The left ureteral jet is not identified (Of note, ureteral jets may not be detectable in up to 25% of cases due to insufficient differences in specific gravity between uretera l and bladder urine). Miscellaneous: No free abdominal fluid. The prostate gland measures 3.6 x 3.6 x 3 0.8 cm for a volu me of 25.4 mL. IMPRESSION: 1.Moderate left hydronephrosis and mild cortical atrophy without evidence of an obstructing calculus in the [id number]. 2.Normal right kidney without nephrolithiasis. Reviewed by: Eric Schwarz MD on 05/19/2024 9:03 AM PDT Approved by: Eric Schwarz MD on 05/19/2024 9:03 AM PDT Station ID: [id number]
== END 2024-05-18 18:01 | disposition home or self-care (01) ==
LOC: DI 18:00
PROVIDERS: ATTEND Family Medicine
DX: N13.30 Unspecified hydronephrosis (principal); N18.32 Chronic kidney disease, stage 3b; Z87.442 Personal history of urinary calculi